=== PATIENT | female | born 1950 | race Caucasian/White ===

== ENCOUNTER 2016-09-22 18:06 | Emergency (ER) | payer OTHER ==
--- NOTE | ~2016-09-22 | CR170 ---
[facility] A Service of [facility] RADIOLOGY TEXT RESULTS PATIENT: ALEXANDRA OLMOS LOCATION: CFTX : 50 UNIT #: [id number] AGE: [address]: Rylie Riojas APRN SEX: F ORDER DR: [id number] [facility] [address] [place], [place] [address] [id number] E MR#: [id number] Acc #: [id number] NAME: ALEXANDRA OLMOS : 1950 SEX: F STUDY DATE/TIME: 09/22/2016 18:57 UNIT: CFPR ROOM: STUDY DESCRIPTION: CR Knee 2 Views Rt Attending Physician: Rylie Riojas A.P.R.N. Referring Physician: Luiz Cortes M.D. Ordering Physician: Tim Price M.D. Primary Care Physician: Luiz Cortes M.D. MEDICAL IMAGING REPORT This report is preliminary unless electronic signature is present EXAM Right knee, 2 views, 09/22/2016 CLINICAL HISTORY Right knee pain for 1 day. No known injury. FINDINGS No acute bony abnormality. The exam is negative with the exception of a metallic foreign body in the upper anterolateral calf about 2 cm in length. Dictated by... Julio Cesar Bateman M.D. THIS IS AN ELECTRONICALLY VERIFIED REPORT Julio Cesar Bateman M.D. at 09/25/2016 4:32 PM TEV/aa TD: 09/23/2016 13:15 JOB #: [id number] MEDICAL IMAGING REPORT COPY
--- NOTE | ~2016-09-22 | US85 ---
[facility] A Service of [facility] RADIOLOGY TEXT RESULTS PATIENT: ALEXANDRA OLMOS LOCATION: CFTX : 50 UNIT #: [id number] AGE: [address]: Rylie Riojas APRN SEX: F ORDER DR: [id number] [facility] [address] [place], [place] [address] [id number] E MR#: [id number] Acc #: [id number] NAME: ALEXANDRA OLMOS : 1950 SEX: F STUDY DATE/TIME: 09/22/2016 19:29 UNIT: CFMI ROOM: STUDY DESCRIPTION: [facility] Attending Physician: Rylie Riojas A.P.R.N. Referring Physician: Luiz Cortes M.D. Ordering Physician: Ed Doctor [id number] [facility] Primary Care Physician: Luiz Cortes M.D. MEDICAL IMAGING REPORT This report is preliminary unless electronic signature is present EXAM Right lower extremity venous ultrasound HISTORY Right knee pain and swelling for 3-4 days. TECHNIQUE Venous ultrasound examination of the right lower extremity was performed using grayscale, spectral Doppler and color flow Doppler imaging. FINDINGS The examination is negative. There is no evidence of right lower extremity deep venous thrombus from the groin to the lower calf. Visualized greater saphenous vein is also patent. IMPRESSION Negative examination. No evidence of right lower extremity deep venous thrombosis. Dictated by... Yohan Goldberg M.D. THIS IS AN ELECTRONICALLY VERIFIED REPORT Yohan Goldberg M.D. at 09/23/2016 4:32 PM Filiberto TD: 09/23/2016 13:29 JOB #: [id number] MEDICAL IMAGING REPORT COPY
[~2016-09-22 18:06] MED LIST: ALPRAZOLAM; AMARYL PO; ASPIRIN EC81 M1 PO; ASPIRIN81 M1 PO; AVELOX400 MG PO; BONIVA150 MG PO; CARAFATE PO; CLARINEX5 MG; COMBIVENT INH14.7 GM; DARVOCET-N 1001 TAB PO; DOXYCYCLINE HY100 M1 PO; FAMOTIDINE10 MG PO; FIORICET 50-321 EACH PO; FLOVENT HFA12 GM; FORADIL12 MCG; FOSAMAX PO; KCL PO; LASIX; LASIX PO; LEVAQUIN; LIPITOR PO; LOPRESSOR PO; METFORMIN; METFORMIN PO; MOBIC PO; NASONEX17 GM; NEXIUM PO; PAMELOR; PAMELOR75 M1 PO; PHENERGAN PO; PREDNISONE; PREMARIN PO; PRILOSEC20 MG PO; PROTONIX; XANAX1 MG PO; ZEBETA5 MG PO; ZOCOR PO; ZOLOFT; ZOLOFT100 MG PO
== END 2016-09-22 20:12 | disposition home or self-care (01) ==
LOC: CFTX 18:06
DX: M25.561 Pain in right knee (principal); M79.89 Other specified soft tissue disorders; I50.9 Heart failure, unspecified; E11.9 Type 2 diabetes mellitus without complications; I10 Essential (primary) hypertension; J44.9 Chronic obstructive pulmonary disease, unspecified; F17.210 Nicotine dependence, cigarettes, uncomplicated; Z90.710 Acquired absence of both cervix and uterus; Z79.899 Other long term (current) drug therapy; Z88.0 Allergy status to penicillin; Z88.5 Allergy status to narcotic agent; Z88.8 Allergy status to other drugs, medicaments and biological substances
CPT/HCPCS: 29530; 73560; 93971; 99284